=== PATIENT | female | born 1970 | race Caucasian/White ===

== ENCOUNTER → 2016-10-30 | Outpatient (CLI) | payer BC, OTHER ==
--- NOTE | 2016-10-30 12:20 | REP ---
Bilateral digital screening mammogram 10/30/2016 Comparison: 01/24/2015, 12/21/2013. Clinical history: Screening examination. She has no current complaints, but does have a family history of breast cancer in mother and a grandmother after 50. The breast parenchyma show scattered heterogeneously dense fibroglandular elements bilaterally in a pattern and distribution generally symmetric and unchanged from previous studies. This may obscure a lesion. However, in the upper outer quadrant of the left breast there is a new 16 x 16 x 14 mm lobulated nodule with fairly sharply described margins. It is just slightly hyperdense to the surrounding parenchyma, it has no abnormal calcifications nor are there spiculated margins. I see no other nodules, masses, architectural distortion, tissue asymmetry, suspicious clusters of microcalcification, skin thickening or other secondary sign of malignancy. Impression: 1. BI-RADS ACR category 0, incomplete, additional imaging evaluation required. New 1.6 x 1.6 x 1.4 cm nodule in the upper outer quadrant left breast that warrants further evaluation with spot magnification CC and MLO images, a true MLO image as well as ultrasound of a persistent finding. This mammogram was interpreted with the aid of an FDA-approved computer-aided detection system. The patient states she/he had a clinical breast exam in 10/2016. The patient letter being requested is M0 dense. Signed by Oskar Mcgovern MD 10/30/2016 06:30 P
== END ==
LOC: M RAD 09:57
PROVIDERS: ATTEND Midwife
DX: Z12.31 Encounter for screening mammogram for malignant neoplasm of breast (principal); R92.2 Inconclusive mammogram

== ENCOUNTER → 2016-11-06 | Outpatient (CLI) | payer BC, OTHER ==
--- NOTE | 2016-11-06 10:50 | REP ---
DIAGNOSTIC MAMMOGRAM, LEFT BREAST WITH LEFT BREAST ULTRASOUND: Diagnostic mammogram of the left breast is performed. Spot compression views of the upper outer quadrant confirm a lobulated nodule at this location measuring approximately 1.9 cm in diameter. Majority of the margins are well defined and smooth. There are no associated microcalcifications. Real-time sonographic evaluation of the upper outer quadrant left breast demonstrates a cluster of cysts, which in total measures 1.5 x 0.8 x 1.7 cm corresponding to the mammographic abnormality. IMPRESSION: ACR 2 benign. The nodule on the mammogram in the upper outer quadrant of the left breast corresponds to a cluster of cysts by ultrasound and is benign. Recommend followup mammogram in 1 year. BI-RADS/ACR category 2 mammogram. Benign finding(s). Routine annual screening mammography (for women over age 40). Patient letter M1. Signed by Sesar Smallwood MD 11/06/2016 01:31 P
== END ==
LOC: M RAD 08:42
PROVIDERS: ATTEND Midwife
DX: R92.8 Other abnormal and inconclusive findings on diagnostic imaging of breast (principal)
CPT/HCPCS: 76642; G0206

== ENCOUNTER → 2020-06-05 | Outpatient (CLI) | payer BC ==
--- NOTE | 2020-06-05 13:45 | REPMRS ---
Patient History The patient states she had a clinical breast exam in 2019. Family history of unknown cancer at age 59 in mother, unknown cancer at age 66 in maternal grandmother, unknown cancer at age 47 in maternal cousin. Took hormonal contraceptives for 3 years. Took unspecified hormones for 7 years. Digital Woman Screen Mammo: June 05, 2020 - Exam #: [id number] Bilateral CC and MLO view(s) were taken. Technologist: Rafia Barton, Technologist Prior study comparison: November 06, 2016, left breast digital mammo diagnostic unilateral, performed at [facility]. October 30, 2016, bilateral digital mammo screening bilat, performed at [facility]. January 24, 2015, bilateral digital mammo screening bilat, performed at [facility]. FINDINGS: There are scattered fibroglandular densities. The Volpara volumetric breast density category is:B. The previously noted cysts in the upper outer quadrant of the left breast have regressed. There has been no other change in the appearance of the mammogram from the prior studies. There is a mild amount of scattered fibroglandular density which is fairly symmetric. There is no interval development of dominant mass, architectural distortion, or grouped microcalcification suggestive of malignancy. 3-D tomosynthesis shows no additional findings. Assessment: BI-RADS/ACR category 1 mammogram. Negative Mammogram. Recommendation Routine screening mammogram of both breasts in 1 year (for women over age 40). This patient's [facility] Lifetime Breast Cancer Risk is estimated at 11.5 %. This mammogram was interpreted with the aid of an FDA-approved computer-aided dectection system. Electronically Signed By: Juan Espinoza MD 06/05/20 [id number]
== END ==
LOC: M WHC 13:00
PROVIDERS: ATTEND Midwife
DX: Z12.31 Encounter for screening mammogram for malignant neoplasm of breast (principal); R92.2 Inconclusive mammogram

== ENCOUNTER 2020-08-27 09:06 | Emergency (ER) | payer BC, OTHER ==
[~2020-08-27] VITALS: Ht 160 cm; Wt 79.1 kg
[2020-08-27 09:07] VITALS: BP 139/79
[2020-08-27] MEDS ORDERED: GNP10CAP PO (09:13)
[2020-08-27] MEDS ORDERED: IBUP200T45 PO (09:13)
[2020-08-27] MEDS ORDERED: ACET-683 PO (09:22)
[2020-08-27] MEDS ORDERED: CYCL-707 PO (09:36)
[2020-08-27] MEDS ORDERED: KETO10TAB PO (09:36)
== END 2020-08-27 09:55 | disposition home or self-care (01) ==
LOC: M ED 09:06
DX: S39.012A Strain of muscle, fascia and tendon of lower back, initial encounter (principal); X50.1XXA Overexertion from prolonged static or awkward postures, initial encounter; Y92.009 Unspecified place in unspecified non-institutional (private) residence as the place of occurrence of the external cause; Y93.89 Activity, other specified; Y99.9 Unspecified external cause status; J30.2 Other seasonal allergic rhinitis

== ENCOUNTER → 2021-08-06 | Outpatient (CLI) | payer BC, OTHER ==
[~2021-08-06] MED LIST: ACET-683 PO; CYCL-707 PO; GNPCAP31 PO; IBUP200T45 PO; KETO10TAB PO
== END ==
LOC: M WHC 12:51
PROVIDERS: ATTEND Midwife
DX: Z12.31 Encounter for screening mammogram for malignant neoplasm of breast (principal); Z80.9 Family history of malignant neoplasm, unspecified

== ENCOUNTER → 2021-09-10 | Outpatient (CLI) | payer BC, OTHER | LOC: M RAD 12:59 | PROVIDERS: ATTEND Otolaryngology | DX: J32.0 Chronic maxillary sinusitis (principal) ==

== ENCOUNTER → 2023-05-28 | Outpatient (CLI) | payer BC, OTHER | LOC: M WHC 12:38 | PROVIDERS: ATTEND Internal Medicine | DX: Z12.31 Encounter for screening mammogram for malignant neoplasm of breast (principal) ==

== ENCOUNTER → 2023-11-04 | Outpatient (REF) | payer BC, OTHER | LOC: M LAB REF 09:22 | PROVIDERS: ATTEND Physician Assistant | DX: R30.0 Dysuria (principal) ==

== ENCOUNTER → 2024-06-13 | Outpatient (CLI) | payer BC | LOC: M WHC 08:11 | PROVIDERS: ATTEND Midwife | DX: Z12.31 Encounter for screening mammogram for malignant neoplasm of breast (principal) ==